=== PATIENT | female | born 2000 | race African-American/Black ===

== ENCOUNTER 2024-12-26 13:07 | Emergency (ER) | payer MEDICAID ==
[~2024-12-26] VITALS: Ht 157.5 cm; Wt 54.4 kg
[2024-12-26 14:11] VITALS: BP 117/74; TEMP 98.2; O2SAT 98
== END 2024-12-26 15:36 | disposition left against medical advice (07) ==
LOC: ER 13:19
DX: N94.89 Other specified conditions associated with female genital organs and menstrual cycle (principal); Z53.21 Procedure and treatment not carried out due to patient leaving prior to being seen by health care provider